=== PATIENT | male | born 1970 ===

== ENCOUNTER 2019-10-04 21:45 | Outpatient (REF) | payer MEDICAID, SELFPAY ==
[2019-10-04 22:23] LABS: ALT 36 U/L (16-63); AST 25 U/L (15-37); Albumin 4.1 g/dL (3.4-5.0); Alkaline Phosphatase 78 U/L (46-116); Anion Gap 8.6 mmol/L (3-11); BUN 18 mg/dL (7-18); Bilirubin, Total 0.2 mg/dL (0.2-1.0); CO2 27.4 mmol/L (21.0-32.0); CREATININE 1.02 mg/dL (0.70-1.30); Calcium 9.6 mg/dL (8.5-10.1); Calculated LDL 125 mg/dL (<100); Chloride 102 mmol/L (98-107); Cholesterol 196 mg/dL (<200); Glucose 93 mg/dL (74-106); HDL Cholesterol 46 mg/dL (40-60); Potassium 4.9 mmol/L (3.5-5.1); Sodium 138 mmol/L (136-145); Total Protein 7.5 g/dL (6.4-8.2); Triglyceride 127 mg/dL (<150)
== END 2019-10-04 22:05 ==
LOC: NCHCN 21:45
PROVIDERS: Visit Provider Nurse Practitioner Family
DX: I10 Essential (primary) hypertension (principal); Z13.220 Encounter for screening for lipoid disorders
CPT/HCPCS: 80053; 80061